=== PATIENT | female | born 1955 | race Caucasian/White ===

== ENCOUNTER 2023-10-04 19:26 | Emergency (ER) | payer BC, MEDICARE ==
[2023-10-04] MEDS ORDERED: Lidocaine 1% 10 ML MDV INJECT ONE (19:45)
== END 2023-10-04 20:16 | disposition home or self-care (01) ==
LOC: VM.ED 19:26
DX: S01.81XA Laceration without foreign body of other part of head, initial encounter (principal); Z79.82 Long term (current) use of aspirin; W22.09XA Striking against other stationary object, initial encounter
CPT/HCPCS: 12013; 99282; J3490